=== PATIENT | female | born 1990 | race Caucasian/White ===

== ENCOUNTER 2016-12-27 16:57 | Emergency (ER) | payer OTHER, MEDICAID ==
[~2016-12-27] VITALS: Ht 160 cm; Wt 80.0 kg
[2016-12-27] MEDS ORDERED: ALPRAZOLAM 0.25 MG TABLET PO ONE (17:30)
[2016-12-27 17:52] VITALS: BP 110/66
== END 2016-12-27 19:15 | disposition home or self-care (01) ==
LOC: ER 19:13
DX: T51.0X1A Toxic effect of ethanol, accidental (unintentional), initial encounter (principal); T40.7X1A Poisoning by cannabis (derivatives), accidental (unintentional), initial encounter; T40.4X1A Poisoning by other synthetic narcotics, accidental (unintentional), initial encounter; R06.4 Hyperventilation; F43.10 Post-traumatic stress disorder, unspecified; F31.9 Bipolar disorder, unspecified; Y92.018 Other place in single-family (private) house as the place of occurrence of the external cause
CPT/HCPCS: 93005; 99283; Z7610